=== PATIENT | male | born 1955 | race Caucasian/White ===

== ENCOUNTER 2023-03-26 16:40 | Outpatient (CLI) | payer MEDICARE, BC ==
--- NOTE | 2023-03-27 15:27 | XRAY Report ---
PROCEDURE: Foot 3 View RT INDICATIONS: R FOOT PAIN TECHNIQUE: 3 views of the foot were acquired. COMPARISON: None. FINDINGS: Bones: No fractures or dislocations. No suspicious bony lesions. First digit postsurgical change with surgical screw/bart overlying the first metatarsal as well as first proximal phalanx. Hardwar e is intact without evidence of hardware fracture or periprosthetic lucency to suggest loosening. The re is good anatomic alignment. Scattered areas of IP degenerative narrowing are present. Soft tissues: No suspicious soft tissue calcifications or masses. IMPRESSION: Postsurgical and degenerative changes as above. Reviewed by: Merline Man MD on 03/27/2023 3:26 PM PDT Approved by: Merline Man MD on 03/27/2023 3:26 PM PDT Station ID: [id number]
== END 2023-03-26 16:41 | disposition home or self-care (01) ==
LOC: DI 16:40
PROVIDERS: ATTEND Podiatrist
DX: M19.071 Primary osteoarthritis, right ankle and foot (principal)

== ENCOUNTER 2024-01-12 08:00 | Outpatient (CLI) | payer MEDICARE, BC | END 2024-01-12 23:59 | disposition home or self-care (01) | LOC: LAB.N 08:00 | PROVIDERS: ATTEND Nurse Practitioner Psychiatric/Mental Health | DX: L03.011 Cellulitis of right finger (principal) | CPT/HCPCS: 87070; 87181; 87205 ==